=== PATIENT | female | born 1960 | race Caucasian/White ===

== ENCOUNTER 2016-06-19 23:23 | Emergency (ER) | payer OTHER, MEDICAID ==
[~2016-06-19] VITALS: Ht 165.1 cm; Wt 54.0 kg
[~2016-06-19 23:23] MED LIST: BACL10TA; HYDR-4100; OXYC80TA39
--- NOTE | 2016-06-19 23:28 | NUR ---
Pt called in for triage, pt refused to be assessed and stated she wanted to have a cigarette break first. Will come back at later time
[2016-06-19 23:56] VITALS: BP 165/88; PULSE 93; RESP 18; TEMP 97.8; O2SAT 99
--- NOTE | 2016-06-19 23:56 | NUR ---
Patient to bed 6
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
--- NOTE | 2016-06-20 00:08 | NUR ---
MD Moreno at bedside examining pt
--- NOTE | 2016-06-20 00:28 | NUR ---
pt taken off ED for CT by radiologist via wheelchair, no distress noted
--- NOTE | 2016-06-20 00:50 | NUR ---
Pt returned to ED
--- NOTE | 2016-06-20 01:30 | NUR ---
Pt able to ambulate to the bathroom, stable gait. Pt denies distress
--- NOTE | 2016-06-20 01:50 | NUR ---
Kizzy james in ED - 06/20/16 at 0235 by [email or web address] Pt returned to ED
[2016-06-20 02:01] LABS: BILIRUBIN,URINE NEGATIVE (NEGATIVE); BLOOD, URINE 2+ (NEGATIVE); CLARITY/URINE CLEAR (CLEAR); COLOR,URINE YELLOW (YELLOW); GLUCOSE,URINE NEGATIVE (NEGATIVE); KETONES,URINE NEGATIVE (NEGATIVE); LEUKOCYTE ESTERASE ,URINE NEGATIVE (NEGATIVE); NITRITE, URINE NEGATIVE (NEGATIVE); PROTEIN URINE TRACE (NEGATIVE); UROBILINOGEN,URINE 0.2 (0.2-1.0)
[2016-06-20 02:12] LABS: BARBITURATE, URINE NEGATIVE (NEG <=200); BENZODIAZEPINE, URINE POSITIVE (NEG <=150); COCAINE, URINE POSITIVE (NEG <=150); METHAMPHETAMINES SCREEN,URINE POSITIVE (NEG <=500); URINE AMPHETAMINE POSITIVE (NEG <=500); URINE METHADONE NEGATIVE (NEG <=200)
[2016-06-20 02:13] VITALS: BP 150/87; PULSE 92; RESP 16; TEMP 97.8; O2SAT 98
[2016-06-20 02:13] LABS: CANNABINOID, URINE NEGATIVE (NEG <=50); OPIATE, URINE NEGATIVE (NEG <=100); PHENCYCLIDINE SCREEN,URINE NEGATIVE (NEG <=25); UR TRICYCLIC ANTIDEPRESSANTS NEGATIVE (NEG <=300); URINE OXYCODONE SCREEN NEGATIVE (NEG <=100); URINE PROPOXYPHENE SCREEN NEGATIVE (NEG <=300)
--- NOTE | 2016-06-20 02:13 | NUR ---
Patient given written and verbal discharge instructions and verbalizes understanding. ER MD Moreno discussed with patient the results and treatment provided. Patient in stable condition. ID arm band removed. No rx given. Patient educated on pain management and to follow up with PMD. Pain Scale 0/10. Opportunity for questions provided and answered.
[2016-06-20 02:24] LABS: BACTERIA,URINE FEW /HPF (None Seen); MUCUS,URINE None Seen /LPF (None Seen)
== END 2016-06-20 02:13 | disposition home or self-care (01) ==
LOC: SED 23:23
DX: S20.219A Contusion of unspecified front wall of thorax, initial encounter (principal); F17.210 Nicotine dependence, cigarettes, uncomplicated; Z88.1 Allergy status to other antibiotic agents; Z88.6 Allergy status to analgesic agent; Z88.8 Allergy status to other drugs, medicaments and biological substances; V49.9XXA Car occupant (driver) (passenger) injured in unspecified traffic accident, initial encounter; Y93.89 Activity, other specified; Y99.8 Other external cause status; Y92.89 Other specified places as the place of occurrence of the external cause
CPT/HCPCS: 70450-TC; 71020-TC; 80307; 81000-TC; 99285

== ENCOUNTER 2016-06-25 09:09 | Emergency (ER) | payer OTHER, MEDICAID ==
[~2016-06-25] VITALS: Ht 172.7 cm; Wt 63.5 kg
[2016-06-25] MEDS ORDERED: OFLOXACIN 0.3% OPHTHALMIC DROPS 5 ML OP ONE (09:45)
[2016-06-25 09:56] VITALS: BP_SYST 178
[2016-06-25 10:14] VITALS: BP_SYST 178
[2016-06-25] MEDS ORDERED: OFLOXACIN 0.3%, 5 ML EAR DROPS ONE (10:14)
== END 2016-06-25 10:16 | disposition home or self-care (01) ==
LOC: SED 09:09
DX: S05.02XA Injury of conjunctiva and corneal abrasion without foreign body, left eye, initial encounter (principal); S05.01XA Injury of conjunctiva and corneal abrasion without foreign body, right eye, initial encounter; Z88.6 Allergy status to analgesic agent; Z88.1 Allergy status to other antibiotic agents; X58.XXXA Exposure to other specified factors, initial encounter; Y93.89 Activity, other specified; Y92.89 Other specified places as the place of occurrence of the external cause; Y99.8 Other external cause status
CPT/HCPCS: 99283

== ENCOUNTER 2016-09-09 13:14 | Inpatient (IN) | payer OTHER, MEDICAID ==
[~2016-09-09] VITALS: Ht 167.4 cm; Wt 56.2 kg
[2016-09-09 13:14] VITALS: BP_SYST 132
[2016-09-09] MEDS ORDERED: NACL 0.9% 1,000 ML IV ONE (14:00)
[2016-09-09 14:22] LABS: BILIRUBIN,URINE NEGATIVE (NEGATIVE); BLOOD, URINE 3+ (NEGATIVE); CLARITY/URINE CLEAR (CLEAR); COLOR,URINE YELLOW (YELLOW); GLUCOSE,URINE NEGATIVE (NEGATIVE); KETONES,URINE NEGATIVE (NEGATIVE); LEUKOCYTE ESTERASE ,URINE NEGATIVE (NEGATIVE); NITRITE, URINE NEGATIVE (NEGATIVE); PH,URINE 5.5 (5.0-8.0); PROTEIN URINE TRACE (NEGATIVE); UROBILINOGEN,URINE 0.2 (0.2-1.0)
[2016-09-09 14:29] LABS: BACTERIA,URINE FEW /HPF (None Seen); MUCUS,URINE None Seen /LPF (None Seen)
[2016-09-09 14:39] LABS: BARBITURATE, URINE NEGATIVE (NEG <=200); BENZODIAZEPINE, URINE NEGATIVE (NEG <=150); CANNABINOID, URINE NEGATIVE (NEG <=50); COCAINE, URINE NEGATIVE (NEG <=150); METHAMPHETAMINES SCREEN,URINE POSITIVE (NEG <=500); OPIATE, URINE POSITIVE (NEG <=100); PHENCYCLIDINE SCREEN,URINE NEGATIVE (NEG <=25); UR TRICYCLIC ANTIDEPRESSANTS NEGATIVE (NEG <=300); URINE AMPHETAMINE POSITIVE (NEG <=500); URINE METHADONE NEGATIVE (NEG <=200); URINE OXYCODONE SCREEN NEGATIVE (NEG <=100); URINE PROPOXYPHENE SCREEN NEGATIVE (NEG <=300)
[2016-09-09 15:14] LABS: BASOPHILS # (AUTO) 0.1 K/uL (0.0-0.2); BASOPHILS % (AUTO) 0.7 % (0.0-2.0); EOSINOPHILS # (AUTO) 0.3 K/uL (0.0-0.4); EOSINOPHILS % (AUTO) 3.1 % (0.0-4.0); HEMATOCRIT 44.9 % (36-48); HEMOGLOBIN 14.3 g/dL (12.0-16.0); LYMPHOCYTES # (AUTO) 2.2 K/uL (1.0-5.5); LYMPHOCYTES % (AUTO) 24.4 % (20.5-51.5); MEAN CORPUSCULAR HEMOGLOBIN 29 pg (27-31); MEAN CORPUSCULAR HGB CONC 32 % (32-36); MEAN CORPUSCULAR VOLUME 90 fL (79.0-98.0); MONOCYTES # (AUTO) 0.7 K/uL (0.0-1.0); MONOCYTES % (AUTO) 7.5 % (1.7-9.3); NEUTROPHILS # (AUTO) 5.6 K/uL (1.8-7.7); NEUTROPHILS % (AUTO) 64.3 % (40.0-70.0); PLATELET COUNT (AUTO) 324 K/uL (130-430); RED BLOOD CELL COUNT(AUTO) 4.99 MIL/uL (4.2-6.2); WHITE BLOOD COUNT (AUTO) 8.9 K/uL (4.8-10.8)
[2016-09-09 15:27] LABS: ANION GAP 7 (5-15); CALCIUM 9.5 mg/dL (8.4-11.0); CHLORIDE 101 mmol/L (98-107); CREATININE 1.42 mg/dL (0.55-1.30); GLUCOSE 96 mg/dL (70-99); PROTHROMBIN TIME 10.5 SECS (9.5-12.5); SODIUM SERUM 139 mmol/L (136-145); UREA NITROGEN, BLOOD 33 mg/dL (8-21)
[2016-09-09 15:32] LABS: ALANINE AMINOTRANSFERASE 38 U/L (12-78); ALBUMIN 3.8 g/dL (3.4-4.8); ASPARTATE AMINOTRANSFERASE 27 U/L (10-37); CREATINE KINASE, TOTAL 70 U/L (26-192); SALICYLATE 4 mg/dL (3-30); TOTAL BILIRUBIN 0.4 mg/dL (0.0-1.0); TOTAL PROTEIN, SERUM 8.9 g/dL (6.4-8.3)
[2016-09-09 15:33] LABS: ALCOHOL, BLOOD < 3 mg/dL (<10); GFR AFRICAN AMERICAN 49 mL/min (>90)
[2016-09-09 15:36] LABS: POTASSIUM 2.8 mmol/L (3.5-5.1)
[2016-09-09 15:51] LABS: ACETAMINOPHEN < 1 ug/mL (1-30)
[2016-09-09] MEDS: KCL 20 mEq in 100 mL (PREMIX) 100 ML IV ONE ×2 (16:45→17:30)
[2016-09-09] MEDS ORDERED: NALOXONE HCL 0.4 MG/ML AMP (NARCAN) IVP ONE (17:00)
[2016-09-09] MEDS ORDERED: ONDA4TAB22 PO (17:26)
[2016-09-09] MEDS ORDERED: CAT.1 PO (17:26)
[2016-09-09] MEDS ORDERED: ESTR0.623 PO (17:26)
[2016-09-09 17:40] VITALS: BP_SYST 165
[2016-09-09] MEDS ORDERED: ACETAMINOPHEN 650 MG SUPP.RECT RC PRN (19:15)
[2016-09-09] MEDS ORDERED: ONDANSETRON HCL 4 MG/2 ML VIAL IVP PRN (19:15)
[2016-09-09] MEDS ORDERED: FAMOTIDINE PF 20 MG/2 ML VIAL IVP ONE (19:15)
[2016-09-09] MEDS ORDERED: cloNIDine HCL 0.1 MG TABLET PO PRN (19:30)
[2016-09-09] MEDS: D5/0.45 NS 1,000 ML IV SCH (20:10)
[2016-09-09 20:19] VITALS: BP_SYST 137
[2016-09-10] VITALS (7 sets, daily range): BP systolic 135–154
[2016-09-10] MEDS: D5/0.45 NS 1,000 ML IV SCH (03:38)
[2016-09-10 06:51] LABS: BASOPHILS # (AUTO) 0.1 K/uL (0.0-0.2); BASOPHILS % (AUTO) 0.6 % (0.0-2.0); EOSINOPHILS # (AUTO) 0.3 K/uL (0.0-0.4); EOSINOPHILS % (AUTO) 3.5 % (0.0-4.0); HEMOGLOBIN 12.1 g/dL (12.0-16.0); LYMPHOCYTES # (AUTO) 1.7 K/uL (1.0-5.5); LYMPHOCYTES % (AUTO) 19.1 % (20.5-51.5); MEAN CORPUSCULAR HEMOGLOBIN 30 pg (27-31); MEAN CORPUSCULAR HGB CONC 34 % (32-36); MEAN CORPUSCULAR VOLUME 90 fL (79.0-98.0); MONOCYTES % (AUTO) 10.5 % (1.7-9.3); NEUTROPHILS % (AUTO) 66.3 % (40.0-70.0); PLATELET COUNT (AUTO) 296 K/uL (130-430); RED BLOOD CELL COUNT(AUTO) 3.99 MIL/uL (4.2-6.2); RED CELL DISTRIBUTION WIDTH 12.8 % (9.0-15.0); WHITE BLOOD COUNT (AUTO) 9.1 K/uL (4.8-10.8)
[2016-09-10 07:16] LABS: ALBUMIN 2.8 g/dL (3.4-4.8); CALCIUM 8.4 mg/dL (8.4-11.0); CREATININE 1.29 mg/dL (0.55-1.30); POTASSIUM 3.1 mmol/L (3.5-5.1); THYROID STIMULATING HORMONE 0.27 uIu/mL (0.34-4.82); TOTAL BILIRUBIN 0.3 mg/dL (0.0-1.0)
[2016-09-10] MEDS ORDERED: HYDROcodone/ACETAMIN 10-325 MG TAB PO PRN ×2 (09:00→09:15)
[2016-09-10] MEDS ORDERED: POTASSIUM CHLORIDE 40 MEQ, LIDOCAINE JECT 2% PF 100 MG 50 MG in NS 250 ML IV ONE (09:00)
[2016-09-10] MEDS ORDERED: BACLOFEN 10 MG TABLET PO SCH (09:00)
[2016-09-10] MEDS ORDERED: ACETAMINOPHEN 325 MG TABLET PO PRN (09:00)
[2016-09-10] MEDS ORDERED: cloNIDine HCL 0.1 MG TABLET PO PRN (09:00)
[2016-09-10] MEDS ORDERED: POTA10TA79 PO (17:53)
[2016-09-10] MEDS ORDERED: CEPH-568 PO (17:53)
== END 2016-09-10 19:20 | disposition home or self-care (01) | DRG 917 ==
LOC: SED 13:14 → STU 17:13
PROVIDERS: ADMIT Internal Medicine; ATTEND Internal Medicine
DX: T50.901A Poisoning by unspecified drugs, medicaments and biological substances, accidental (unintentional), initial encounter (principal); G92 Toxic encephalopathy; N39.0 Urinary tract infection, site not specified; E87.6 Hypokalemia; G89.4 Chronic pain syndrome; M54.5 Low back pain; M79.7 Fibromyalgia; M79.89 Other specified soft tissue disorders; F17.210 Nicotine dependence, cigarettes, uncomplicated; T39.95XA Adverse effect of unspecified nonopioid analgesic, antipyretic and antirheumatic, initial encounter; N18.9 Chronic kidney disease, unspecified; Z88.6 Allergy status to analgesic agent; Z88.1 Allergy status to other antibiotic agents; Z88.8 Allergy status to other drugs, medicaments and biological substances; Z79.899 Other long term (current) drug therapy; Z72.89 Other problems related to lifestyle; Y92.89 Other specified places as the place of occurrence of the external cause
CPT/HCPCS: 36415; 70450-TC; 71010; 80053; 80307; 81000-TC; 82550-TC; 83735-TC; 84443-TC; 84484; 85025; 85610-TC; 85730-TC; 87081; 93005; 93970; 96361; 96365; 96366; 99285; G0480; G0481; G0482; J3480; J3490; J7050

== ENCOUNTER 2017-12-18 12:00 | Inpatient (IN) | payer OTHER, MEDICAID ==
[~2017-12-18] VITALS: Ht 165.1 cm; Wt 74.4 kg
[~2017-12-18 12:00] MED LIST changes: +CEPH-568 PO; +ONDA4TAB22 PO; -OXYC80TA39; +POTA10TA11 PO
[2017-12-18 12:14] VITALS: BP_SYST 116
--- NOTE | 2017-12-18 12:22 | NUR ---
Patient to ER bed 5 to gown for evaluation. Side rails up. Report given to Adelfo LERMA.
--- NOTE | 2017-12-18 12:34 | NUR ---
Patient is awake, alert, and oriented x4. She is complaining of pain in both legs lasting for 1.5 weeks. She reports a history of anxiety, depression, and cholecystectomy.
[2017-12-18] MEDS ORDERED: NACL 0.9% 1,000 ML IV ONE ×3 (12:36→14:15)
[2017-12-18] MEDS ORDERED: ONDANSETRON HCL 4 MG/2 ML VIAL IVP ONE (12:45)
[2017-12-18] MEDS ORDERED: MORPHINE 4 MG/ML INJ. SYRINGE IVP ONE (12:45)
[2017-12-18] MEDS ORDERED: cefTRIAXone 1 GM IVPB PREMIX 50 ML IV ONE (13:00)
[2017-12-18 13:11] LABS: BASOPHILS # (AUTO) 0.1 K/uL (0.0-0.2); BASOPHILS % (AUTO) 0.6 % (0.0-2.0); HEMATOCRIT 50.3 % (36-48); HEMOGLOBIN 16.4 g/dL (12.0-16.0); LYMPHOCYTES # (AUTO) 0.3 K/uL (1.0-5.5); LYMPHOCYTES % (AUTO) 1.7 % (20.5-51.5); MEAN CORPUSCULAR HEMOGLOBIN 30 pg (27-31); MEAN CORPUSCULAR HGB CONC 33 % (32-36); MEAN CORPUSCULAR VOLUME 91 fL (79.0-98.0); MONOCYTES # (AUTO) 0.1 K/uL (0.0-1.0); MONOCYTES % (AUTO) 0.4 % (1.7-9.3); NEUTROPHILS # (AUTO) 17.7 K/uL (1.8-7.7); NEUTROPHILS % (AUTO) 97.3 % (40.0-70.0); PLATELET COUNT (AUTO) 358 K/uL (130-430); RED BLOOD CELL COUNT(AUTO) 5.55 MIL/uL (4.2-6.2); RED CELL DISTRIBUTION WIDTH 14.9 % (9.0-15.0); WHITE BLOOD COUNT (AUTO) 18.2 K/uL (4.8-10.8)
[2017-12-18 13:23] LABS: ANION GAP 13 (5-15); CALCIUM 9.6 mg/dL (8.4-11.0); CHLORIDE 96 mmol/L (98-107); GFR AFRICAN AMERICAN 54 mL/min (>90); GLUCOSE 97 mg/dL (70-99); POTASSIUM 3.2 mmol/L (3.5-5.1); SODIUM SERUM 135 mmol/L (136-145); UREA NITROGEN, BLOOD 16 mg/dL (8-21)
[2017-12-18 13:26] LABS: PROTHROMBIN TIME 9.9 SECS (9.5-12.5)
[2017-12-18 13:29] LABS: ALANINE AMINOTRANSFERASE 35 U/L (12-78); ALBUMIN 3.5 g/dL (3.4-4.8); ASPARTATE AMINOTRANSFERASE 31 U/L (10-37); LIPASE 94 U/L (73-393); TOTAL BILIRUBIN 0.9 mg/dL (0.0-1.0)
[2017-12-18 13:33] LABS: ACETAMINOPHEN < 1 ug/mL (1-30); ALCOHOL, BLOOD < 3 mg/dL (<10)
--- NOTE | 2017-12-18 15:06 | NUR ---
Dr. Saleh made aware of abnormal vital signs.
[2017-12-18 15:13] LABS: BILIRUBIN,URINE NEGATIVE (NEGATIVE); BLOOD, URINE 2+ (NEGATIVE); CLARITY/URINE CLEAR (CLEAR); COLOR,URINE YELLOW (YELLOW); GLUCOSE,URINE NEGATIVE (NEGATIVE); KETONES,URINE NEGATIVE (NEGATIVE); LEUKOCYTE ESTERASE ,URINE NEGATIVE (NEGATIVE); NITRITE, URINE NEGATIVE (NEGATIVE); PH,URINE 6.5 (5.0-8.0); PROTEIN URINE 2+ (NEGATIVE); UROBILINOGEN,URINE 0.2 (0.2-1.0)
[2017-12-18] MEDS ORDERED: cloNIDine HCL 0.1 MG TABLET PO ONE ×2 (15:15→16:30)
[2017-12-18] MEDS ORDERED: ACETAMINOPHEN 500 MG TABLET PO ONE (15:15)
[2017-12-18 15:17] LABS: BACTERIA,URINE FEW /HPF (None Seen); MUCUS,URINE 1+ /LPF (None Seen)
[2017-12-18 15:21] LABS: BARBITURATE, URINE NEGATIVE (NEG <=200); BENZODIAZEPINE, URINE NEGATIVE (NEG <=150); CANNABINOID, URINE NEGATIVE (NEG <=50); COCAINE, URINE NEGATIVE (NEG <=150); METHAMPHETAMINES SCREEN,URINE POSITIVE (NEG <=500); OPIATE, URINE POSITIVE (NEG <=100); PHENCYCLIDINE SCREEN,URINE NEGATIVE (NEG <=25); UR TRICYCLIC ANTIDEPRESSANTS NEGATIVE (NEG <=300); URINE AMPHETAMINE POSITIVE (NEG <=500); URINE METHADONE NEGATIVE (NEG <=200); URINE OXYCODONE SCREEN NEGATIVE (NEG <=100); URINE PROPOXYPHENE SCREEN NEGATIVE (NEG <=300)
--- NOTE | 2017-12-18 15:47 | NUR ---
Patient transported to radiology via gurney, accompanied by pathology lab technician.
--- NOTE | 2017-12-18 16:20 | NUR ---
Returned from radiology, back to [facility].
--- NOTE | 2017-12-18 16:22 | NUR ---
Informed Dr. Saleh of vitals and increase in oxygen.
--- NOTE | 2017-12-18 16:34 | NUR ---
Clonidine 0.2mg not available, insuffecient quantity available. Spoke with Zane in pharmacy and made them aware.
[2017-12-18] MEDS ORDERED: HYDROcodone/ACETAMIN 5-325 MG TAB (NORCO/ VICODIN) PO PRN (17:15)
[2017-12-18] MEDS ORDERED: ONDANSETRON HCL 4 MG/2 ML VIAL IVP PRN (17:15)
--- NOTE | 2017-12-18 17:20 | NUR ---
Spoke with Dr. Tinsley regardng admission orders. States she will put in all orders.
[2017-12-18] MEDS ORDERED: MAGNESIUM SULFATE 50 ML IV PRN (17:45)
--- NOTE | 2017-12-18 17:53 | NUR ---
Patient will be admitted to care of Dr. Tinsley. Admitted to telemetry unit. Will go to room 101A. Belongings list completed. Summary report printed. Report will be given at bedside.
--- NOTE | 2017-12-18 18:04 | NUR ---
ADMISSION NOTE Received patient from ER via isak, received report from HOLA LERMA. Patient admitted with diagnosis of BILATERAL LE CELLULITIS . Patient oriented to hospital routine, call light, toileting and safety-patient verbalized understanding.
--- NOTE | 2017-12-18 18:08 | NUR ---
Patient transferred to room 101A with mobile monitor via gurney by RN and EMT. Report given to MARIA GUADALUPE Moralez for continuation of care.
[2017-12-18 18:12] VITALS: BP_SYST 162
[2017-12-18] MEDS ORDERED: NACL 0.9% 1,000 ML IV SCH (18:15)
[2017-12-18] MEDS ORDERED: POTASSIUM CHLORIDE 20 MEQ TAB.PRT.SR PO ONE (18:15)
[2017-12-18] MEDS ORDERED: FUROSEMIDE 100 MG/10 ML VIAL IVP ONE (18:15)
--- NOTE | 2017-12-18 18:30 | NUR ---
Opening Note received report from admitting RN, pt resting in bed, A&Ox3, respirations even and unlabored on 4L nasal canula, right EJ in place, tele monitor in place, pt denies any pain, no acute distress noted, pt educated on use of call light and asked to call for assistance, pt verbalized understanding, call light in reach, bed in low position, bed alarm on, fall and aspiration precautions in place.
[2017-12-18] MEDS ORDERED: PIPERACILLIN/TAZOBACTAM 3.375 GM/VIAL (ZOSYN) IV ONE (18:33)
[2017-12-18 18:40] VITALS: BP_SYST 156
[2017-12-18] MEDS: PIPERACILLIN/TAZO 3.375/DEX-IS 50 ML IV SCH ×2 (18:45→23:58)
--- NOTE | 2017-12-18 18:50 | NUR ---
Medication pt educated on medication use and side effects, pt verbalized understanding, tolerated medication administration well, no acute distress noted, fall and aspiration precautions in place.
--- NOTE | 2017-12-18 19:10 | NUR ---
Spoke with pharmacy spoke with pharmacy, they asked if pt has any blood in urine or any signs of bleeding due to orders for lovenox, informed them that pt has not yet voided since being admitted to floor, no report of blood in urine, endorsed to shiftman RN to monitor for bleeding.
--- NOTE | 2017-12-18 19:20 | NUR ---
Closing Note pt resting in bed, A&Ox3, respirations even and unlabored on 4L nasal canula, pt denies any pain, no acute distress noted, tele monitor in place, pt educated on use of call light and asked to call for assistance, pt verbalized understanding, call light in reach, bed in low position, bed alarm on, fall and aspiration precautions in place, care endorsed to night shift manager RN.
--- NOTE | 2017-12-18 19:37 | NUR ---
Spoke with Spoke with Dr. Tinsley, informed her that pts BP was 156/84, HR 104 at 1840, current BP 118/79, HR 111, informed MD that pt meets sepsis protocol, orders to call MD if SBP drops below 100, D/C order for lasix 80mg, new order for lasix 40mg IVP once, orders for NS @ 150ml/hr, verified with telephone read back. Addendum: 12/18/17 at 1955 by Karin Dillard RN add: per MD keep O2Sat >93%
[2017-12-18] MEDS ORDERED: FUROSEMIDE 40 MG/4 ML VIAL IVP ONE (19:45)
[2017-12-18] MEDS: NACL 0.9% 1,000 ML IV SCH (19:45)
[2017-12-18 19:50] VITALS: BP_SYST 135
[2017-12-18 19:52] VITALS: BP_SYST 118
--- NOTE | 2017-12-18 19:52 | NUR ---
INITIAL NOTE AT INITIAL ASSESSMENT, PATIENT IS RESTING IN BED, NO SIGNS OF RESPIRATORY DISTRESS. PATIENT VERBALIZES TOLERABLE PAIN AT THIS TIME. PLAN OF CARE FOR THE EVENING IS COMMUNICATED WITH THE PATIENT. CALL LIGHT-TEACH BACK IS SUCCESSFUL. BLOOD PRESSURE WILL BE MONITORED CLOSELY THROUGHOUT THE SHIFT. BED IS LOCKED, ALARMED, AND AT THE LOWEST LEVEL. SEPSIS PROTOCOL HAS ALREADY BEEN INITIATED AND IS BEING FOLLOWED THROUGH AT THIS TIME. FALL AND SAFETY PRECAUTIONS WILL BE IN PLACE THROUGHOUT THE SHIFT.
[2017-12-18] MEDS: ALBUTEROL SULFATE 0.083% 2.5 MG/3 ML VIAL.NEB INH PRN (20:22)
--- NOTE | 2017-12-18 21:46 | NUR ---
NOTE PATIENT IS SLEEPING, STABLE, NO SIGNS OF RESPIRATORY DISTRESS. HER BLOOD PRESSURE HAS STOPPED DESCENDING. CALL LIGHT WITHIN REACH. BED IS LOCKED, ALARMED, AND AT THE LOWEST LEVEL.
[2017-12-18 21:57] VITALS: BP_SYST 116
--- NOTE | 2017-12-18 23:45 | NUR ---
PAIN NOTE PATIENT IS RESTING IN BED, STABLE, NO SIGNS OF RESPIRATORY DISTRESS. SHE IS VERBALIZING SEVERE LOWER BACK PAIN AT THIS TIME, PRN MEDICATION FOR SEVERE PAIN WILL BE GIVEN AT THIS TIME. CALL LIGHT WITHIN REACH. BED IS LOCKED, ALARMED, AND AT THE LOWEST LEVEL.
[2017-12-18] MEDS: MORPHINE 2 MG/ML INJ. SYRINGE IVP PRN (23:58)
[2017-12-19 01:10] VITALS: BP_SYST 155
--- NOTE | 2017-12-19 01:42 | NUR ---
NOTE PATIENT IS SLEEPING, STABLE, NO SIGNS OF RESPIRATORY DISTRESS. CALL LIGHT WITHIN REACH. BED IS LOCKED, ALARMED, AND AT THE LOWEST LEVEL.
[2017-12-19] MEDS: MORPHINE 2 MG/ML INJ. SYRINGE IVP PRN ×2 (03:04→16:44)
[2017-12-19] MEDS: NACL 0.9% 1,000 ML IV SCH ×4 (03:08→23:22)
--- NOTE | 2017-12-19 04:10 | NUR ---
HIGH HR NOTE PATIENT IS RESTING IN BED, NO SIGNS OF RESPIRATORY DISTRESS. HER HR HAS BEEN ELEVATED DESPITE PRN MEDICATION GIVEN FOR PAIN 1 HOUR AGO. PATIENT VERBALIZES SOME ANXIETY, PRN MEDICATION FOR ANXIETY IS GIVEN AT THIS TIME. PATIENT VERBALIZES NO DIFFICULTY BREATHING, OR PAIN (INCLUDING CHEST PAIN). CALL LIGHT WITHIN REACH. BED IS LOCKED, AND AT THE LOWEST LEVEL.
[2017-12-19] MEDS: LORazepam 2 MG/ML VIAL IVP PRN (04:45)
--- NOTE | 2017-12-19 05:09 | NUR ---
HR NOTE PATIENT'S HR IS STILL ELEVATED AT THIS TIME AROUND 110, SHE IS SLEEPING, STABLE, NO SIGNS OF RESPIRATORY DISTRESS, AND IS ASYMPTOMATIC OF TACHYCARDIA. WILL CONTINUE TO MONITOR CLOSELY. CALL LIGHT WITHIN REACH. BED IS LOCKED, AND AT THE LOWEST LEVEL.
[2017-12-19] MEDS: PIPERACILLIN/TAZO 3.375/DEX-IS 50 ML IV SCH ×4 (05:11→23:17)
--- NOTE | 2017-12-19 05:29 | NUR ---
CONSULTATION PAGED/CALLED Reason for Consultation: CHF Person Who was Notified: KATHY Consulting Physician: DR. ALBARRAN Director Of Marketing Operations Specialty: CARDIO Ordering Physician: DR. JOHN
[2017-12-19 06:24] LABS: BASOPHILS % (AUTO) 0.2 % (0.0-2.0); HEMATOCRIT 39.7 % (36-48); HEMOGLOBIN 12.9 g/dL (12.0-16.0); LYMPHOCYTES # (AUTO) 0.5 K/uL (1.0-5.5); LYMPHOCYTES % (AUTO) 3.4 % (20.5-51.5); MEAN CORPUSCULAR HEMOGLOBIN 29 pg (27-31); MEAN CORPUSCULAR HGB CONC 33 % (32-36); MEAN CORPUSCULAR VOLUME 90 fL (79.0-98.0); MONOCYTES # (AUTO) 0.2 K/uL (0.0-1.0); MONOCYTES % (AUTO) 1.3 % (1.7-9.3); NEUTROPHILS # (AUTO) 14.3 K/uL (1.8-7.7); NEUTROPHILS % (AUTO) 95.1 % (40.0-70.0); PLATELET COUNT (AUTO) 272 K/uL (130-430); RED BLOOD CELL COUNT(AUTO) 4.42 MIL/uL (4.2-6.2); RED CELL DISTRIBUTION WIDTH 14.4 % (9.0-15.0)
[2017-12-19] MEDS: POTASSIUM CHLORIDE 20 MEQ TAB.PRT.SR PO PRN (06:40)
--- NOTE | 2017-12-19 06:44 | NUR ---
FLU VACCINE GIVEN PATIENT RECEIVED FLU VACCINE AT THIS TIME.
--- NOTE | 2017-12-19 06:45 | NUR ---
MD AD JOHN IS AT BEDSIDE FOR THE PATIENT AT THIS TIME. SHE VERBALIZES SHE WILL PLACE NEW ORDERS FOR PATIENT HERSELF. Addendum: 12/19/17 at 0744 by Moe Graf RN MD WAS MADE AWARE OF THE PATIENT'S HIGH HR OVER NIGHT.
[2017-12-19 06:50] LABS: CALCIUM 7.5 mg/dL (8.4-11.0); CREATININE 1.12 mg/dL (0.55-1.30); POTASSIUM 3.5 mmol/L (3.5-5.1)
--- NOTE | 2017-12-19 06:50 | NUR ---
CLOSING NOTE PATIENT IS RESTING IN BED, STABLE, NO SIGNS OF RESPIRATORY DISTRESS. CALL LIGHT IS WITHIN REACH. BED IS LOCKED, ALARMED, AND AT THE LOWEST LEVEL. FALL AND SAFETY PRECAUTIONS HAVE BEEN IN PLACE THROUGHOUT THE SHIFT. WILL CONTINUE TO MONITOR UNTIL SHIFT REPORT IS GIVEN AT BEDSIDE TO AM NURSE.
[2017-12-19 06:54] LABS: PHOSPHORUS 2.8 mg/dL (2.7-4.5)
--- NOTE | 2017-12-19 08:02 | NUR ---
OPENING NOTE: MORNING REPORT WAS TAKEN FROM SCHOOL BUS AIDE NURSE. PATIENT IS ALERT AND ORIENTED TO NAME, BIRTHDAY, PLACE AND YEAR. PATIENT IN ON 3L NC COMPLAINING OF A LITTLE BIT OF SHORTNESS OF BREATH. PATIENT IS NOT COMPLAINING OF PAIN. PATIENT IS NOT COMPLAINING OF NAUSEA OR VOMITING. PATIENT IS NOT COMPLAINING OF CONSTIPATION. PATIENT HAS FLUIDS INFUSING. LEFT CALF IS RED AND WARM. PATIENTS LOWER EXTREMITIES EDEMATOUS. PATIENT VERY LETHARGIC. PATIENT FALLS ASLEEP WHILE TALKING TO HER. BED ALARM IS ON AND CALL LIGHT IS IN REACH. BED IS IN LOWEST POSITION AND SIDE RAILS ARE UP. WILL CONTINUE TO MONITOR.
[2017-12-19 08:04] VITALS: BP_SYST 176
[2017-12-19] MEDS: FUROSEMIDE 40 MG/4 ML VIAL IVP SCH (09:18)
[2017-12-19] MEDS: LACTOBACILLUS RHAMNOSUS GG 1 CAP CAPSULE PO SCH (09:19)
[2017-12-19] MEDS: ENOXAPARIN SODIUM 40 MG/0.4 ML SYRINGE SUBCUT SCH (09:20)
--- NOTE | 2017-12-19 10:01 | NUR ---
NOTE: CHECKED PATIENT'S BLOOD PRESSURE BECAUSE IT WAS ELEVATED EARLIER AND WAS NOW 146/100. PATIENT ASLEEP IN BED. WILL CONTINUE TO MONITOR.
[2017-12-19] MEDS ORDERED: CARVEDILOL 6.25 MG TABLET (COREG) PO ONE (11:30)
[2017-12-19 12:00] VITALS: BP_SYST 172
--- NOTE | 2017-12-19 12:24 | NUR ---
NOTE: GAVE PATIENT SCHEDULED MEDICATIONS. BLOOD PRESSURE ELEVATED. GAVE BP MED. WILL REASSESS IN AN HOUR.
--- NOTE | 2017-12-19 14:50 | NUR ---
NOTE: PATIENT LAYING DOWN IN BED WITH NO SIGNS OF DISTRESS. PATIENT STILL LETHARGIC. FLUIDS ARE INFUSING AND CALL LIGHT IS IN REACH. WILL CONTINUE TO MONITOR.
[2017-12-19 16:00] VITALS: BP_SYST 177
[2017-12-19] MEDS: hydrALAZINE HCL 20 MG/ML VIAL IVP PRN (16:09)
--- NOTE | 2017-12-19 16:10 | NUR ---
NOTE: PATIENT'S BLOOD PRESSURE ELEVATED. GAVE PRN FOR BLOOD PRESSURE. HUNG NEW BAG OF FLUIDS. PATIENT ASLEEP STILL BUT WAKES FOR A SECOND TO TALK TO HER. WILL CONTINUE TO MONITOR.
--- NOTE | 2017-12-19 16:55 | NUR ---
NOTE: PATIENT WAS MOANING COMPLAINING OF PAIN. GAVE PATIENT PAIN MEDICATION. RECHECKED BLOOD PRESSURE AND WAS 159/122. PATIENT GETTING DOPPLER OF LOWER EXTREMITIES RIGHT NOW. WILL CONTINUE TO MONITOR.
--- NOTE | 2017-12-19 18:13 | NUR ---
CLOSING NOTE: PATIENT ASLEEP IN BED WITH NO SIGNS OF DISTRESS. PATIENT GIVEN SCHEDULED MEDICATIONS. PATIENT LETHARGIC STILL. FLUIDS ARE INFUSING. PATIENT ON 4L NC. CALL LIGHT IS IN REACH AND BED ALARM IS ON. WILL CONTINUE TO MONITOR AND GIVE REPORT TO MILL ORDER SCHEDULER NURSE.
[2017-12-19 20:00] VITALS: BP_SYST 144
--- NOTE | 2017-12-19 20:00 | NUR ---
Initial Notes Received patient resting in bed, lethargic but arousable to name. Patient denies any acute distress or pain at this time. Breathing is even and unlabored. Vital signs stable, fever noted, removed excess blankets and cooling measures applied. IV sites patent/clean/dry. Educated patient regarding use of call light for assistance and fall precautions, patient verbalized understanding. Call light in hand, fall precautions in place, will continue to monitor.
[2017-12-19] MEDS ORDERED: CARVEDILOL 6.25 MG TABLET (COREG) PO SCH (21:00)
--- NOTE | 2017-12-19 21:15 | NUR ---
MD Communication S/W Dr. Tinsley on phone regarding patient's elevated temperature. Orders received and will carry out. Per patient, patient is not allergic to Tylenol.
[2017-12-19] MEDS ORDERED: ACETAMINOPHEN 325 MG TABLET PO PRN (21:30)
--- NOTE | 2017-12-19 22:00 | NUR ---
Nursing Notes Patient resting in bed with eyes closed, arousable to name. Patient denies any acute distress or pain at this time. Breathing is even and unlabored. IV site patent/clean/dry. Needs addressed. Call light in hand, will continue to monitor.
[2017-12-19 23:34] VITALS: BP_SYST 124
[2017-12-20] VITALS (16 sets, daily range): BP systolic 104–203
--- NOTE | 2017-12-20 | NUR ---
Nursing Notes Patient resting in bed with eyes closed, easily aroused. Patient denies any acute distress or pain at this time. Breathing is even and unlabored. IV site patent/clean/dry. Repositioned patient for comfort. Fall precautions in place, will continue to monitor.
--- NOTE | 2017-12-20 02:00 | NUR ---
Nursing Notes Patient resting in bed with eyes closed. No distress noted, breathing is even and unlabored. IV site patent/clean/dry. Will continue to monitor for changes and safety.
--- NOTE | 2017-12-20 04:00 | NUR ---
Nursing Notes Patient resting in bed with eyes closed. No distress or pain noted. IV site patent/clean/dry. Fall precautions in place.
[2017-12-20] MEDS: PIPERACILLIN/TAZO 3.375/DEX-IS 50 ML IV SCH ×4 (05:18→23:58)
[2017-12-20] MEDS: NACL 0.9% 1,000 ML IV SCH (05:18)
--- NOTE | 2017-12-20 06:42 | NUR ---
Closing Notes Patient resting in bed with eyes closed, easily aroused. Patient denies any acute distress or pain at this time. Breathing is even and unlabored. IV site patent/clean/dry, no S/S infection/infiltration noted. Needs addressed throughout shift. Call light in hand, fall precautions in place. Will continue to monitor for changes and safety, and endorse all patient care/needs to oncoming nurse.
[2017-12-20 07:03] LABS: CALCIUM 7.8 mg/dL (8.4-11.0); CREATININE 0.99 mg/dL (0.55-1.30); POTASSIUM 3.2 mmol/L (3.5-5.1); THYROID STIMULATING HORMONE 0.34 uIu/mL (0.34-4.82); TOTAL BILIRUBIN 0.8 mg/dL (0.0-1.0)
[2017-12-20 07:06] LABS: EOSINOPHILS % (AUTO) 0.2 % (0.0-4.0); HEMATOCRIT 40.1 % (36-48); HEMOGLOBIN 13.2 g/dL (12.0-16.0); LYMPHOCYTES # (AUTO) 0.6 K/uL (1.0-5.5); LYMPHOCYTES % (AUTO) 4.4 % (20.5-51.5); MEAN CORPUSCULAR HEMOGLOBIN 29 pg (27-31); MEAN CORPUSCULAR HGB CONC 33 % (32-36); MEAN CORPUSCULAR VOLUME 89 fL (79.0-98.0); MONOCYTES # (AUTO) 0.5 K/uL (0.0-1.0); MONOCYTES % (AUTO) 3.7 % (1.7-9.3); NEUTROPHILS # (AUTO) 12.8 K/uL (1.8-7.7); NEUTROPHILS % (AUTO) 91.7 % (40.0-70.0); PLATELET COUNT (AUTO) 208 K/uL (130-430); RED BLOOD CELL COUNT(AUTO) 4.53 MIL/uL (4.2-6.2); RED CELL DISTRIBUTION WIDTH 14.1 % (9.0-15.0); WHITE BLOOD COUNT (AUTO) 13.9 K/uL (4.8-10.8)
--- NOTE | 2017-12-20 07:50 | NUR ---
OPENING NOTES, PT IN BED, MOANING, PT C/O OF PAIN 7/10 ON HER LEGS. O2 SAT IS 92% ON O4 LI, RR IS 24. . PT RECEIVING NS AT 150 CC/ HR VIA R. IJ #20 ANGIOCATH. NO S/S OF INFILTRATION AND SWELLING. SALINE LOCH ON LEFT UPPER ARM NOTED. IT IS INTACT AND PATENT. NO S/S OF INFILTRATION. SAFETY PRECAUTION IN PLACE. CALL LIGHT IN REACH. BED IN LOW POSITION. WILL CONT TO MONITOR.
[2017-12-20] MEDS: MORPHINE 2 MG/ML INJ. SYRINGE IVP PRN (08:24)
[2017-12-20] MEDS: FUROSEMIDE 40 MG/4 ML VIAL IVP SCH (08:38)
--- NOTE | 2017-12-20 08:45 | NUR ---
0825 AM: SLITTER AND REWINDER CAME TO CHECK PT, FOR RR OF 40 AND LOW OT SAT. EARLIER PT WAS CHECKED AT 0800, FOUND PT TO BED TACHYPNEIC AT 44 BPM AND O2 SAT WAS AT 88% ON 4L PER NC. PT INITIALLY PLACE ON 15 LIT PER NON REBREATHER MASK. , O2 SAT WENT UP TO 96% BUT RR IS STILL ON THE 40'S. SLITTER AND REWINDER WAS CALLED AT 0823. PT WAS GIVEN MORPHINE AND SOLUMEDROL ORDERED. IVF STOPPED PER SLITTER AND REWINDER. SLITTER AND REWINDER ENDED AT 0845.
[2017-12-20] MEDS ORDERED: methylPREDNISolone SOD SUCC/PF 62.5 MG/ML VIAL ONE (08:47)
[2017-12-20] MEDS ORDERED: MORPHINE 2 MG/ML INJ. SYRINGE ONE (08:48)
--- NOTE | 2017-12-20 08:51 | NUR ---
Nutrition Update William Scale 16 noted. Pt admitted for BLE Cellulitis Diet: cardiac low cholesterol low fat 2gm Na diet BMI: 27.4 kg/m2 RD to follow per nutrition care standards.
[2017-12-20] MEDS: ALBUTEROL SULFATE 0.083% 2.5 MG/3 ML VIAL.NEB INH PRN ×2 (08:56→08:59)
[2017-12-20] MEDS ORDERED: methylPREDNISolone SOD SUCC/PF 62.5 MG/ML VIAL IVP SCH (09:00)
--- NOTE | 2017-12-20 09:25 | NUR ---
TRANSFER PT TRANSFERRED FROM TELEMETRY TO ICU RM 4 POST RAPID RESPONSE. PT IS AROUSABLE TO VERBAL STIMULUS. RECEIVING O2 VIA NON-REBREATHER MASK AT 10 LITERS. DENIES ANY CHEST PAIN. DR. ALBARRAN CAME TO CHECK ON PT. ORIENTED TO CALL-LIGHT AND ENVIRONMENT. WILL BE SEEN ON CONSULT BY DR. SMITH.
--- NOTE | 2017-12-20 09:45 | NUR ---
REPORT REPORT RECEIVED FROM TELE NURSESARAH.
--- NOTE | 2017-12-20 10:00 | NUR ---
PT TRANSFERRED TO ICU-4, BEDSIDE REPORT GIVEN TO MARIA GUADALUPE ALEGRIA
--- NOTE | 2017-12-20 10:31 | NUR ---
REPORT CARE ENDORSED TO Clarissa HOANG RN
--- NOTE | 2017-12-20 10:31 | NUR ---
RECEIVED REPORT/RESUMING CARE RECEIVED REPORT AT BEDSIDE BY CHARGE NURSE, EVELYN. PT A/O X 3, SPEAKS FRISIAN AND LETHARGIC. VSS ON 10L O2 THERAPY VIA NON-REBREATHER MASK, NO COMPLAINT OF PAIN. BOTH ANGIOCATH SITES PATENT, DRESSINGS DRY AND INTACT. BED IN LOWEST POSITION, CALL LIGHT WITHIN REACH, AND BED IS LOCATED IN VISUAL RANGE OF NURSING STATION.
[2017-12-20] MEDS: POTASSIUM CHLORIDE 20 MEQ TAB.PRT.SR PO SCH ×2 (10:51→20:09)
[2017-12-20] MEDS: LACTOBACILLUS RHAMNOSUS GG 1 CAP CAPSULE PO SCH (10:51)
[2017-12-20] MEDS: ENOXAPARIN SODIUM 40 MG/0.4 ML SYRINGE SUBCUT SCH (10:52)
[2017-12-20] MEDS: D5NS 1,000 ML IV SCH (10:58)
--- NOTE | 2017-12-20 14:01 | NUR ---
Dietitian Recommendations *Recommend continuing NPO per MD orders. *Recommend advance diet when medically appropriate. (cardiac low cholesterol low fat diet) Please see Nutritional Assessment for details. JAIMEE, RD
[2017-12-20] MEDS: POTASSIUM CHLORIDE 20 MEQ TAB.PRT.SR PO PRN (18:48)
[2017-12-20] MEDS: hydrALAZINE HCL 20 MG/ML VIAL IVP PRN (18:49)
--- NOTE | 2017-12-20 19:30 | NUR ---
ENDORSEMENT REPORT ENDORSED TO MARIA GUADALUPE SOLIMAN AT BEDSIDE.
--- NOTE | 2017-12-20 19:30 | NUR ---
OPENING NOTES Received report from AM shift RN, Pt is AAOX4 with VSS tolerating 100% non rebreather with O2 saturation of 96%. Skin is intact with no wounds noted. Swollen lower extremity noted with callus formation noted on both feet. IV on PERRY 22g noted and R external jugular 20g patent with blood return noted, no sign of infiltration and redness noted. Safety precaution observed, call light within reach. Will continue to monitor Pt.
[2017-12-20] MEDS: IPRATROPIUM BROM 0.5 MG/2.5 ML VIAL.NEB (ATROVENT) INH SCH (19:59)
[2017-12-20] MEDS: ALBUTEROL SULFATE 0.083% 2.5 MG/3 ML VIAL.NEB INH SCH (20:00)
[2017-12-20] MEDS: methylPREDNISolone SOD SUCC/PF 62.5 MG/ML VIAL IVP SCH (20:08)
[2017-12-20] MEDS: CARVEDILOL 12.5 MG TABLET (COREG) PO SCH (20:09)
[2017-12-21] VITALS (19 sets, daily range): BP systolic 108–158
--- NOTE | 2017-12-21 | NUR ---
RN NOTES Pt in bed, resting, no acute distress at this time. Will continue to monitor Pt.
[2017-12-21] MEDS: IPRATROPIUM BROM 0.5 MG/2.5 ML VIAL.NEB (ATROVENT) INH SCH ×4 (00:58→19:40)
[2017-12-21] MEDS: ALBUTEROL SULFATE 0.083% 2.5 MG/3 ML VIAL.NEB INH SCH ×4 (00:58→19:39)
--- NOTE | 2017-12-21 01:15 | NUR ---
RESPIRATORY Pt's O2 saturation at 99%, wean off to 6L Oximizer, will continue to monitor Pt.
--- NOTE | 2017-12-21 02:00 | NUR ---
RESPIRATORY Pt's O2 saturation at 87%, Placed O2 to 100% non rebreather mask, will continue to monitor Pt.
--- NOTE | 2017-12-21 02:10 | NUR ---
BP Pt systolic at 163, gave prn BP medication. Will continue to monitor Pt.
[2017-12-21] MEDS: hydrALAZINE HCL 20 MG/ML VIAL IVP PRN (02:11)
[2017-12-21] MEDS: MORPHINE 2 MG/ML INJ. SYRINGE IVP PRN ×2 (02:33→10:23)
--- NOTE | 2017-12-21 04:30 | NUR ---
CHG CHG bath given Pt tolerate well.
[2017-12-21] MEDS: PIPERACILLIN/TAZO 3.375/DEX-IS 50 ML IV SCH ×3 (05:03→17:13)
[2017-12-21] MEDS: D5NS 1,000 ML IV SCH (05:03)
--- NOTE | 2017-12-21 05:15 | NUR ---
RESPIRATORY Pt's O2 saturation at 96%, wean off to 10L simple mask, will continue to monitor Pt.
[2017-12-21 06:20] LABS: BASOPHILS % (AUTO) 0.1 % (0.0-2.0); EOSINOPHILS % (AUTO) 0.1 % (0.0-4.0); HEMATOCRIT 37.2 % (36-48); LYMPHOCYTES # (AUTO) 0.4 K/uL (1.0-5.5); LYMPHOCYTES % (AUTO) 3.8 % (20.5-51.5); MEAN CORPUSCULAR HEMOGLOBIN 29 pg (27-31); MEAN CORPUSCULAR HGB CONC 32 % (32-36); MEAN CORPUSCULAR VOLUME 89 fL (79.0-98.0); MONOCYTES # (AUTO) 0.3 K/uL (0.0-1.0); MONOCYTES % (AUTO) 2.9 % (1.7-9.3); NEUTROPHILS # (AUTO) 11.1 K/uL (1.8-7.7); NEUTROPHILS % (AUTO) 93.1 % (40.0-70.0); PLATELET COUNT (AUTO) 209 K/uL (130-430); RED BLOOD CELL COUNT(AUTO) 4.17 MIL/uL (4.2-6.2); RED CELL DISTRIBUTION WIDTH 14.2 % (9.0-15.0); WHITE BLOOD COUNT (AUTO) 11.8 K/uL (4.8-10.8)
--- NOTE | 2017-12-21 06:24 | NUR ---
CLOSING NOTES Pt in bed resting, No acute distress at this time, iv lines, skin checked. Will give report to oncoming RN VIA SBAR.
[2017-12-21 06:35] LABS: ALBUMIN 1.7 g/dL (3.4-4.8); CALCIUM 8.1 mg/dL (8.4-11.0); CREATININE 0.86 mg/dL (0.55-1.30); POTASSIUM 3.2 mmol/L (3.5-5.1); TOTAL BILIRUBIN 0.5 mg/dL (0.0-1.0)
--- NOTE | 2017-12-21 08:00 | NUR ---
RN OPENING NOTE PT AA/O X 4, SPEAKS FILIPINO AND COOPERATIVE VSS ON 10L O2 THERAPY VIA SIMPLE MASK. BOTH ANGIOCATH SITES PATENT, DRESSINGS DRY AND INTACT. BED IS IN LOWEST POSITION, CALL LIGHT WITHIN REACH, AND BED IS LOCATED IN VISUAL RANGE OF NURSING STATION.
--- NOTE | 2017-12-21 08:29 | NUR ---
DR. ALBARRAN AT BEDSIDE
--- NOTE | 2017-12-21 10:04 | NUR ---
Paged Dr. Philip for orders and lab results. Waiting for call back. Addendum: 12/21/17 at 1049 by Manda Vincent RN Dr. Philip return call at 1038. No new orders made.
[2017-12-21] MEDS: methylPREDNISolone SOD SUCC/PF 62.5 MG/ML VIAL IVP SCH ×2 (10:15→21:26)
[2017-12-21] MEDS: FUROSEMIDE 40 MG/4 ML VIAL IVP SCH (10:17)
[2017-12-21] MEDS: LORazepam 2 MG/ML VIAL IVP PRN (10:18)
[2017-12-21] MEDS: POTASSIUM CHLORIDE 20 MEQ TAB.PRT.SR PO SCH ×2 (10:19→21:24)
[2017-12-21] MEDS: hydrALAZINE HCL 25 MG TABLET PO SCH ×2 (10:20→21:25)
[2017-12-21] MEDS: LACTOBACILLUS RHAMNOSUS GG 1 CAP CAPSULE PO SCH (10:20)
[2017-12-21] MEDS: CARVEDILOL 12.5 MG TABLET (COREG) PO SCH ×2 (10:21→21:25)
[2017-12-21] MEDS: ENOXAPARIN SODIUM 40 MG/0.4 ML SYRINGE SUBCUT SCH (10:25)
--- NOTE | 2017-12-21 10:30 | NUR ---
O2 CHANGED TO 4L NC WITH HUMIDIFIER PER DR. ALBARRAN PT TOLERATING WELL
--- NOTE | 2017-12-21 11:30 | NUR ---
O2 CHANGED TO 7L VIA NC DUE TO MILD DESATURATION DR. SMITH AWARE.
--- NOTE | 2017-12-21 16:10 | NUR ---
ORDER TO TRANSFER TO TELEMETRY CONTINUING CARE IN ICU-4 UNTIL A TELEMETRY NURSE IS AVAILABLE.
--- NOTE | 2017-12-21 16:30 | NUR ---
CALLED DR. REEVES FOR PSYCH CONSULT PER DR. NAVA SPOKE TO MARIA FERNANDA IN MD OFFICE. FAXED FACE SHEET REQUESTING, AWAITING MD CALLBACK.
--- NOTE | 2017-12-21 17:20 | NUR ---
XFER TO TELE ROOM 120-A PT TRANSPORTED WITH BANQUET SUPERVISOR AND O2 THERAPY PER ACLS GUIDELINES. REPORT ENDORSED TO MARIA GUADALUPE GERONIMO AT BEDSIDE.
--- NOTE | 2017-12-21 17:29 | NUR ---
transfer Note Report received form [facility] ICU nurse. Patient is in room 120-A. Current O2 sat is 91-97% on 7L o2 via. Patient is awake and oriented x2. IV is on the LUE 22g running D5NS@50. Call light is within reach and bed is in low position. Patient has personal belongings, however, is refusing to have her purse checked. Will continue to closely monitor.
--- NOTE | 2017-12-21 18:10 | NUR ---
RN Note Patient is refusing to place the oxygen placed until she goes outside to smoke. D/t to her medical condition and need for oxygen it is unsafe for her to go outside and smoke. Current O2 sat is 90%. Patient is also refusing to have her personal belongings including her purse to be inventoried. Will continue to monitor.
--- NOTE | 2017-12-21 18:58 | NUR ---
Closing Note patient is still refusing to place the oxygen on current o2 sat is 92%. patient is still refusing have her belongings checked. IV is on the left arm running D5NS. Call light is within reach, bed alarm, call light is within reach. Will endorse care to oncoming nurse.
--- NOTE | 2017-12-21 20:00 | NUR ---
Opening notes Pt AAOx4. VSS. No s/s distress noted. SR on the monitor. O2 7L via NC satting at 95%. IVF infusing as ordered PERRY 22G no infiltration noted. R. IJ 20G flushes well with NS but no blood return noted. Pt had breathing txmt. Safety measure in place. Call light within reach. Will continue to monitor.
[2017-12-22 00:10] VITALS: BP_SYST 164
[2017-12-22] MEDS: D5NS 1,000 ML IV SCH (01:45)
--- NOTE | 2017-12-22 04:35 | NUR ---
Rounds Pt asleep, no s/s distress noted. Pt satting at 92% on room air. IVF infusing as ordered PERRY no infiltration noted. Call light within reach. Will continue to monitor.
--- NOTE | 2017-12-22 05:25 | NUR ---
Pt refused Chest Xray and lab draw this AM.
[2017-12-22] MEDS: PIPERACILLIN/TAZO 3.375/DEX-IS 50 ML IV SCH ×2 (06:22)
[2017-12-22] MEDS: LORazepam 2 MG/ML VIAL IVP PRN (06:27)
--- NOTE | 2017-12-22 07:00 | NUR ---
Left AMA Pt AAO, anxious. Pt signed AMA form and states she just want to smoke outside and she doesn't care. Explained to pt if she develops any Chest pain or any severe pain to go back to ER. IV lock x 2 discontinued with catheter tip intact, no active bleeding noted. Pt satting at 91-92% on room air, 95% on 5L O2. No s/s distress. Security paged. Paged and spoke with Dr. Rivera and informed him that she signed AMA form and refused CXR and lab draw this am. Tele box removed and all belongings returned to pt.
--- NOTE | 2017-12-22 08:39 | NUR ---
Consult cancelled: Called exchange and informed them that patient left AMA and consult for Dr. Sotomayor needed to be cancelled. Spoke with Lor.
== END 2017-12-22 06:55 | disposition left against medical advice (07) | DRG 871 ==
LOC: SED 12:00 → STU 17:13 → SIC 12-20 09:22 → STU 12-21 17:26
PROVIDERS: ADMIT Family Medicine; ATTEND Family Medicine
DX: A41.9 Sepsis, unspecified organism (principal); J69.0 Pneumonitis due to inhalation of food and vomit; G92 Toxic encephalopathy; J96.01 Acute respiratory failure with hypoxia; E87.1 Hypo-osmolality and hyponatremia; I31.3 Pericardial effusion (noninflammatory); I50.40 Unspecified combined systolic (congestive) and diastolic (congestive) heart failure; L03.115 Cellulitis of right lower limb; L03.116 Cellulitis of left lower limb; J44.1 Chronic obstructive pulmonary disease with (acute) exacerbation; D75.1 Secondary polycythemia; E87.6 Hypokalemia; F14.10 Cocaine abuse, uncomplicated; G89.4 Chronic pain syndrome; I11.0 Hypertensive heart disease with heart failure; F15.90 Other stimulant use, unspecified, uncomplicated; E86.0 Dehydration; Z53.21 Procedure and treatment not carried out due to patient leaving prior to being seen by health care provider; I16.0 Hypertensive urgency; Z86.718 Personal history of other venous thrombosis and embolism; Z87.891 Personal history of nicotine dependence; Z90.49 Acquired absence of other specified parts of digestive tract; Z88.5 Allergy status to narcotic agent; Z88.1 Allergy status to other antibiotic agents; Z88.8 Allergy status to other drugs, medicaments and biological substances; Z79.899 Other long term (current) drug therapy
CPT/HCPCS: 36415; 36600; 71045; 80048; 80053; 80061; 80307; 81000-TC; 82550-TC; 82803-TC; 82962; 83605; 83690-TC; 83735-TC; 83880; 84100-TC; 84443-TC; 84484; 85025; 85379; 85610-TC; 85730-TC; 87040-TC; 87081; 87086; 90656; 93005; 93306; 93970; 94640; 94760; 96365; 96375; 99285; G0480; G0481; G0482; J0360; J0696; J1650; J1940; J2060; J2270; J2405; J2543; J2930; J3475; J7030; J7040; J7042; J7613

== ENCOUNTER 2017-12-23 22:23 | Emergency (ER) | payer OTHER, MEDICAID ==
[~2017-12-23] VITALS: Ht 167.6 cm; Wt 61.2 kg
[2017-12-23 22:24] VITALS: BP_SYST 209
--- NOTE | 2017-12-23 22:47 | NUR ---
Patient to ER bed 05 to gown for evaluation. Side rails up. Report given to MARIA GUADALUPE Bardales
--- NOTE | 2017-12-23 22:47 | NUR ---
Pt c/o generalized rash, chest and back pain and anxiety x 1 day. Red and raised rash generalized to all extremities, mild SOB noted. Pt was admitted r/t pneumonia and left AMA. Pt states that she was under a lot of stress so she had to leave to take care of things. Pt returns r/t symptoms worsening. Airway patent, SPO2 100% RA. Addendum: 12/24/17 at 0446 by CHARITY Pt also dx with cellulitis to LLE. Skin intact, but inflammed and red.
--- NOTE | 2017-12-23 23:00 | NUR ---
Dr. Shelton at bedside.
[2017-12-23] MEDS ORDERED: methylPREDNISolone SOD SUCC/PF 62.5 MG/ML VIAL IM ONE (23:45)
[2017-12-23] MEDS ORDERED: cloNIDine HCL 0.1 MG TABLET PO ONE (23:45)
[2017-12-23] MEDS ORDERED: DIPHENHYDRAMINE INJ 50 MG/ML VIAL IM ONE (23:45)
[2017-12-23] MEDS ORDERED: LORazepam 2 MG/ML VIAL (FOR ER USE) IM ONE (23:45)
--- NOTE | 2017-12-24 00:30 | NUR ---
Pt resting quietly, even and non-labored respirations, VSS.
[2017-12-24] MEDS ORDERED: cloNIDine HCL 0.1 MG TABLET PO ONE (00:45)
--- NOTE | 2017-12-24 01:10 | NUR ---
Denies c/o pain or discomfort, improvement in breathing and pain. No needs verbalized at this time.
[2017-12-24 01:40] VITALS: BP_SYST 132
--- NOTE | 2017-12-24 01:41 | NUR ---
Patient given written and verbal discharge instructions and verbalizes understanding. ER MD discussed with patient the results and treatment provided. Patient in stable condition. ID arm band removed. Rx of Benadryl, Prednisone, Xanax given. Patient educated on pain management and to follow up with PMD. Pain Scale 0/10. Opportunity for questions provided and answered. Medication side effect fact sheet provided.
== END 2017-12-24 01:41 | disposition home or self-care (01) ==
LOC: SED 22:23
DX: L50.9 Urticaria, unspecified (principal); F41.9 Anxiety disorder, unspecified; I10 Essential (primary) hypertension; Z88.1 Allergy status to other antibiotic agents; Z88.6 Allergy status to analgesic agent; Z88.5 Allergy status to narcotic agent; Z79.899 Other long term (current) drug therapy
CPT/HCPCS: 93005; 96372; 99284; J1200; J2060; J2930

== ENCOUNTER 2019-02-23 14:32 | Emergency (ER) | payer OTHER, MEDICAID ==
[~2019-02-23] VITALS: Ht 165.1 cm; Wt 68.0 kg
[2019-02-23 14:32] VITALS: BP_SYST 200
[2019-02-23] MEDS ORDERED: NACL 0.9% 1,000 ML IV ONE (15:49)
[2019-02-23] MEDS ORDERED: cloNIDine HCL 0.1 MG TABLET PO ONE ×2 (16:00→17:30)
[2019-02-23 16:32] LABS: BASOPHILS # (AUTO) 0.1 K/uL (0.0-0.2); BASOPHILS % (AUTO) 1.1 % (0.0-2.0); EOSINOPHILS # (AUTO) 0.3 K/uL (0.0-0.4); EOSINOPHILS % (AUTO) 4.4 % (0.0-4.0); HEMATOCRIT 45.9 % (36-48); HEMOGLOBIN 15.6 g/dL (12.0-16.0); LYMPHOCYTES # (AUTO) 2.7 K/uL (1.0-5.5); LYMPHOCYTES % (AUTO) 42.8 % (20.5-51.5); MEAN CORPUSCULAR HEMOGLOBIN 31 pg (27-31); MEAN CORPUSCULAR HGB CONC 34 % (32-36); MEAN CORPUSCULAR VOLUME 91 fL (79.0-98.0); MONOCYTES # (AUTO) 0.7 K/uL (0.0-1.0); MONOCYTES % (AUTO) 11.7 % (1.7-9.3); NEUTROPHILS # (AUTO) 2.5 K/uL (1.8-7.7); PLATELET COUNT (AUTO) 313 K/uL (130-430); RED BLOOD CELL COUNT(AUTO) 5.07 MIL/uL (4.2-6.2); RED CELL DISTRIBUTION WIDTH 13.6 % (9.0-15.0); WHITE BLOOD COUNT (AUTO) 6.3 K/uL (4.8-10.8)
[2019-02-23 16:50] LABS: INR 0.9 (0.8-1.2); PROTHROMBIN TIME 9.1 SECS (9.5-12.5)
[2019-02-23 17:17] LABS: CALCIUM 9.3 mg/dL (8.4-11.0); CREATININE 0.95 mg/dL (0.55-1.30); POTASSIUM 3.7 mmol/L (3.5-5.1)
[2019-02-23 17:22] LABS: ALBUMIN 3.6 g/dL (3.4-4.8); TOTAL BILIRUBIN 0.4 mg/dL (0.0-1.0)
[2019-02-23] MEDS ORDERED: ALBUTEROL SULFATE 0.083% 2.5 MG/3 ML VIAL.NEB INH ONE ×3 (18:00→19:00)
[2019-02-23] MEDS ORDERED: IPRATROPIUM BROM 0.5 MG/2.5 ML VIAL.NEB (ATROVENT) INH ONE ×3 (18:00→19:00)
[2019-02-23] MEDS ORDERED: methylPREDNISolone SOD SUCC/PF 62.5 MG/ML VIAL IVP ONE (18:00)
[2019-02-23] MEDS ORDERED: guaiFENesin 200 MG/10 ML UDC PO ONE (19:30)
[2019-02-23 19:54] LABS: CKMB RELATIVE INDEX 1.4 (0.0-2.9); CREATINE KINASE MB 6.8 ng/mL (0-3.6)
[2019-02-23 20:10] VITALS: BP_SYST 157
== END 2019-02-23 20:10 | disposition home or self-care (01) ==
LOC: SED 14:32
DX: J40 Bronchitis, not specified as acute or chronic (principal); G89.29 Other chronic pain; M25.561 Pain in right knee; I10 Essential (primary) hypertension; F17.210 Nicotine dependence, cigarettes, uncomplicated; Z71.6 Tobacco abuse counseling; Z88.5 Allergy status to narcotic agent; Z88.1 Allergy status to other antibiotic agents; Z88.6 Allergy status to analgesic agent; Z79.899 Other long term (current) drug therapy
CPT/HCPCS: 36415; 71045; 80053; 82150; 82550; 82553; 83605; 83690; 84484; 85025; 85610; 85730; 87040; 93005; 94640; 96374; 99284; J2930; J7030; J7613

== ENCOUNTER 2019-03-10 22:28 | Inpatient (IN) | payer OTHER, MEDICAID ==
[~2019-03-10] VITALS: Ht 165.1 cm; Wt 68.0 kg
[2019-03-10 22:33] VITALS: BP_SYST 164
--- NOTE | 2019-03-10 22:33 | NUR ---
Patient triaged and placed in waiting room. VSS and patient appears in no acute distress at this time. Accompanied by FAM MEMBER, awaiting available bed, and MD notified of need for MSE.
[2019-03-10 23:26] LABS: BASOPHILS % (AUTO) 0.5 % (0.0-2.0); EOSINOPHILS % (AUTO) 0.5 % (0.0-4.0); HEMATOCRIT 45.6 % (36-48); HEMOGLOBIN 15.6 g/dL (12.0-16.0); LYMPHOCYTES # (AUTO) 0.5 K/uL (1.0-5.5); LYMPHOCYTES % (AUTO) 5.9 % (20.5-51.5); MEAN CORPUSCULAR HEMOGLOBIN 31 pg (27-31); MEAN CORPUSCULAR HGB CONC 34 % (32-36); MEAN CORPUSCULAR VOLUME 90 fL (79.0-98.0); MONOCYTES # (AUTO) 1.1 K/uL (0.0-1.0); MONOCYTES % (AUTO) 12.4 % (1.7-9.3); NEUTROPHILS # (AUTO) 6.8 K/uL (1.8-7.7); NEUTROPHILS % (AUTO) 80.7 % (40.0-70.0); PLATELET COUNT (AUTO) 252 K/uL (130-430); RED BLOOD CELL COUNT(AUTO) 5.09 MIL/uL (4.2-6.2); RED CELL DISTRIBUTION WIDTH 13.8 % (9.0-15.0); WHITE BLOOD COUNT (AUTO) 8.5 K/uL (4.8-10.8)
[2019-03-10 23:37] LABS: CALCIUM 8.3 mg/dL (8.4-11.0); CREATININE 1.18 mg/dL (0.55-1.30); POTASSIUM 3.6 mmol/L (3.5-5.1)
[2019-03-10 23:43] LABS: ALBUMIN 3.4 g/dL (3.4-4.8); TOTAL BILIRUBIN 0.3 mg/dL (0.0-1.0)
--- NOTE | 2019-03-11 01:55 | NUR ---
Placed in room 7 . Placed on mechanical detailer, blood pressure machine and pulse oximeter. To gown for exam. Side rails up. Report given to MAGDALENO LERMA.
--- NOTE | 2019-03-11 01:55 | NUR ---
ER at bedside examining patient.
[2019-03-11] MEDS ORDERED: OSELTAMIVIR PHOSPHATE 75 MG CAPSULE PO ONE (02:00)
[2019-03-11] MEDS ORDERED: methylPREDNISolone SOD SUCC/PF 62.5 MG/ML VIAL IVP ONE (02:00)
[2019-03-11] MEDS ORDERED: IPRATROPIUM/ALBUTEROL SULFATE 3 ML AMPUL.NEB (DUONEB) INH ONE ×3 (02:00)
--- NOTE | 2019-03-11 02:00 | NUR ---
Pt brought to ED by boyfriend. Pt states that she has had cough/congestion and flu like symptoms for approximately 1 week. Pt states that she has history of copd. Pt presents to the ER with mild respiratory distress. Pt ambulatory, awake, alert, oriented x4. Pt Denies chest pain, any other medical complaint at this time. VSS
[2019-03-11] MEDS ORDERED: IBUPROFEN 600 MG TABLET PO ONE (02:15)
--- NOTE | 2019-03-11 02:55 | NUR ---
Pt resting in ED bed comfortably. No acute distress.
--- NOTE | 2019-03-11 03:30 | NUR ---
Pt resting in ED bed, Pt states she agrees to be admitted.
--- NOTE | 2019-03-11 04:27 | NUR ---
Pt Resting in ED bed. No acute distress noted.
[2019-03-11] MEDS ORDERED: NACL 0.9% 1,000 ML IV ONE (04:30)
[2019-03-11] MEDS ORDERED: IBUPROFEN 600 MG TABLET ONE (04:34)
--- NOTE | 2019-03-11 05:00 | NUR ---
Dr. Ascencio determined a central line is needed for hydration, antibiotics and further treatment
[2019-03-11] MEDS ORDERED: LEVOFLOXACIN 500 MG TABLET PO ONE (05:45)
[2019-03-11] MEDS ORDERED: PREDNISONE 20 MG TABLET PO ONE (05:45)
--- NOTE | 2019-03-11 06:22 | NUR ---
Pt Restin gin ED bed. No acute distress noted.
[2019-03-11] MEDS ORDERED: MORPHINE 4 MG/ML INJ. SYRINGE IVP ONE (06:30)
--- NOTE | 2019-03-11 07:00 | NUR ---
Patient will be admitted to care of . Admitted to tele unit. Will go to room 135. Belongings list completed. Complete and up to date summary report printed. SBAR report to be given at bedside with opportunity for questions.
--- NOTE | 2019-03-11 07:22 | NUR ---
Central line placed by . Right Internal Jugular. Placement with ultrasound. Sterile procedure observed
[2019-03-11] MEDS ORDERED: DOCUSATE SODIUM 100 MG/10 ML UDC PO PRN (08:00)
[2019-03-11] MEDS ORDERED: ONDANSETRON HCL 4 MG/2 ML VIAL IVP PRN (08:00)
[2019-03-11] MEDS ORDERED: ACETAMINOPHEN 500 MG TABLET PO PRN (08:00)
[2019-03-11] MEDS ORDERED: POTASSIUM CHLORIDE 40 MEQ in NS 250 ML IV PRN ×2 (08:00→08:15)
[2019-03-11] MEDS ORDERED: IPRATROPIUM/ALBUTEROL SULFATE 3 ML AMPUL.NEB (DUONEB) INH PRN (08:15)
--- NOTE | 2019-03-11 09:20 | NUR ---
ADMIT NOTE Received pt from ER to the floor with a diagnosis of COPD WITH influenza. Admission process initiated. patient oriented to pain management, safety and call light-teach back done.
--- NOTE | 2019-03-11 09:21 | NUR ---
CONSULTATION PAGED REASON FOR CONSULTATION:COPD, INFLUENZA WAS CONSULT CALLED?Y PERSON WHO WAS NOTIFIED:VIVEK CONSULTING PHYSICIAN:ROWENA GUTIERREZ OUTDOOR PURSUITS INSTRUCTOR SPECIALTY:PULMONARY OUTDOOR PURSUITS INSTRUCTOR PHONE NUMBER:[phone] ORDERING PHYSICIAN:GIGI THOMAS
[2019-03-11 09:29] VITALS: BP_SYST 123
--- NOTE | 2019-03-11 09:30 | NUR ---
Opening note patient resting in bed at this time, A/ox4, no complaints of pain. Iv patent, intact, and infusing fluids as ordered. patient falls asleep in middle of conversation. awakens to answer and falls asleep again. on droplet precautions for influenza, on safety and aspiration precautions, HOB kept elevated, bed alarm on, 3 side rails up, call light within reach. patient in stable condition. Will continue to monitor.
[2019-03-11] MEDS: PANTOPRAZOLE SODIUM 40 MG TAB PO SCH (10:10)
[2019-03-11] MEDS: NACL 0.9% 1,000 ML IV SCH ×2 (10:13→21:56)
--- NOTE | 2019-03-11 10:15 | NUR ---
patient refusing ABG patient will not allow ABG to be drawn. Attempted to encourage patient, patient continued to refuse. MD aware.
[2019-03-11 10:29] LABS: BILIRUBIN,URINE NEGATIVE (NEGATIVE); BLOOD, URINE 3+ (NEGATIVE); CLARITY/URINE OTHER (CLEAR); COLOR,URINE YELLOW (YELLOW); GLUCOSE,URINE NEGATIVE (NEGATIVE); KETONES,URINE NEGATIVE (NEGATIVE); LEUKOCYTE ESTERASE ,URINE NEGATIVE (NEGATIVE); NITRITE, URINE NEGATIVE (NEGATIVE); PROTEIN URINE 2+ (NEGATIVE); UROBILINOGEN,URINE 0.2 (0.2-1.0)
[2019-03-11 10:43] VITALS: BP_SYST 147
[2019-03-11 10:45] LABS: BARBITURATE, URINE NEGATIVE (NEG <=200); BENZODIAZEPINE, URINE NEGATIVE (NEG <=150); CANNABINOID, URINE NEGATIVE (NEG <=50); COCAINE, URINE NEGATIVE (NEG <=150); METHAMPHETAMINES SCREEN,URINE POSITIVE (NEG <=500); OPIATE, URINE POSITIVE (NEG <=100); PHENCYCLIDINE SCREEN,URINE NEGATIVE (NEG <=25); UR TRICYCLIC ANTIDEPRESSANTS NEGATIVE (NEG <=300); URINE AMPHETAMINE POSITIVE (NEG <=500); URINE METHADONE NEGATIVE (NEG <=200); URINE OXYCODONE SCREEN NEGATIVE (NEG <=100); URINE PROPOXYPHENE SCREEN NEGATIVE (NEG <=300)
[2019-03-11 10:52] LABS: WBC,URINE 0-3 /HPF (0-3)
[2019-03-11 10:53] LABS: BACTERIA,URINE FEW /HPF (None Seen)
[2019-03-11] MEDS: IPRATROPIUM/ALBUTEROL SULFATE 3 ML AMPUL.NEB (DUONEB) INH SCH ×4 (11:07→23:05)
[2019-03-11] MEDS: methylPREDNISolone SOD SUCC/PF 62.5 MG/ML VIAL IVP SCH ×2 (11:31→20:00)
[2019-03-11 11:36] LABS: FREE T4 (FREE THYROXINE) 1.1 ng/dl (0.8-1.5); PHOSPHORUS 4.4 mg/dL (2.7-4.5); PROTHROMBIN TIME 10.1 SECS (9.5-12.5); THYROID STIMULATING HORMONE 0.1 uIu/mL (0.36-3.74)
--- NOTE | 2019-03-11 12:30 | NUR ---
Lunch patient sitting up in bed at this time, eating lunch, tolerating well. no nausea, no vomiting noted.
[2019-03-11] MEDS: HYDROcodone/ACETAMIN 7.5-325 MG TAB PO PRN ×2 (14:29→21:28)
[2019-03-11] MEDS ORDERED: LISINOPRIL 10 MG TABLET (PRINIVIL) PO ONE (14:30)
--- NOTE | 2019-03-11 14:45 | NUR ---
ambulating Patient walked to the restroom and back to bed with assistance, steady gait but patient falling asleep on toilet. Assisted patietn back to bed. Patient in stable condition.
--- NOTE | 2019-03-11 16:00 | NUR ---
rounds Offered to assist patient to the restroom. patient walked to the restroom, and back to bed with steady gait. no other needs at this time.
[2019-03-11 16:17] VITALS: BP_SYST 130
--- NOTE | 2019-03-11 18:20 | NUR ---
closing note patient resting in bed at this time, A/ox4, no complaints of pain. Iv patent, intact, and infusing fluids as ordered. No infiltration noted. On droplet precautions for influenza, on safety and aspiration precautions, HOB kept elevated, bed alarm on, 3 side rails up, call light within reach. patient in stable condition. All needs met.
[2019-03-11 19:00] VITALS: BP_SYST 137
[2019-03-11 20:00] VITALS: BP_SYST 137
[2019-03-11] MEDS: methylPREDNISolone SOD SUCC 40 MG/ML VIAL IVP SCH ×2 (21:29→21:31)
[2019-03-11] MEDS: OSELTAMIVIR PHOSPHATE 75 MG CAPSULE PO SCH (21:29)
[2019-03-12 00:02] VITALS: BP_SYST 140
[2019-03-12] MEDS: IPRATROPIUM/ALBUTEROL SULFATE 3 ML AMPUL.NEB (DUONEB) INH SCH ×3 (03:00→11:00)
[2019-03-12] MEDS: HYDROcodone/ACETAMIN 7.5-325 MG TAB PO PRN (05:32)
[2019-03-12 07:44] VITALS: BP_SYST 148
--- NOTE | 2019-03-12 07:50 | NUR ---
INITIAL NOTE RECEIVED PT IN BED, NO S/S OF DISTRESS OR SOB NOTED, PT HAS NO C/O PAIN AT THIS TIME, PT IN STABLE CONDITION, PT AAOX4, VERBAL. IV CATHETER PATENT, NO SIGNS OF INFECTION OR INFILTRATION NOTED, RUNNING IV FLUIDS ORDERED. BED AT LOWEST POSITION, CALL LIGHT WITHIN REACH, WILL CONTINUE TO MONITOR PT FOR ANY CHANGES, FALL AND SAFETY PRECAUTIONS IN PLACE. PT ON ROOM AIR, SATURATION OF 93%.
[2019-03-12] MEDS: OSELTAMIVIR PHOSPHATE 75 MG CAPSULE PO SCH (08:29)
[2019-03-12] MEDS: PANTOPRAZOLE SODIUM 40 MG TAB PO SCH (08:30)
[2019-03-12 08:45] LABS: BASOPHILS % (AUTO) 0.2 % (0.0-2.0); HEMATOCRIT 43.7 % (36-48); HEMOGLOBIN 14.3 g/dL (12.0-16.0); LYMPHOCYTES # (AUTO) 0.7 K/uL (1.0-5.5); LYMPHOCYTES % (AUTO) 6.6 % (20.5-51.5); MEAN CORPUSCULAR HEMOGLOBIN 30 pg (27-31); MEAN CORPUSCULAR HGB CONC 33 % (32-36); MEAN CORPUSCULAR VOLUME 92 fL (79.0-98.0); MONOCYTES # (AUTO) 0.3 K/uL (0.0-1.0); MONOCYTES % (AUTO) 3.2 % (1.7-9.3); NEUTROPHILS # (AUTO) 9.7 K/uL (1.8-7.7); PLATELET COUNT (AUTO) 230 K/uL (130-430); RED BLOOD CELL COUNT(AUTO) 4.77 MIL/uL (4.2-6.2); RED CELL DISTRIBUTION WIDTH 14.1 % (9.0-15.0); WHITE BLOOD COUNT (AUTO) 10.8 K/uL (4.8-10.8)
[2019-03-12] MEDS ORDERED: LISINOPRIL 10 MG TABLET (PRINIVIL) PO SCH (09:00)
[2019-03-12 09:04] LABS: CALCIUM 8.2 mg/dL (8.4-11.0); CREATININE 1.13 mg/dL (0.55-1.30); POTASSIUM 4.3 mmol/L (3.5-5.1)
--- NOTE | 2019-03-12 10:30 | NUR ---
ROUNDS PT IN BED, NO S/S OF DISTRESS OR SOB NOTED, PT HAS NO C/O PAIN AT THIS TIME, PT IN STABLE CONDITION, PT ON HER PHONE, WILL CONTINUE TO MONITOR PT FOR ANY CHANGES.
[2019-03-12] MEDS: NACL 0.9% 1,000 ML IV SCH (10:51)
[2019-03-12 12:00] VITALS: BP_SYST 120
--- NOTE | 2019-03-12 12:10 | NUR ---
ROUNDS PT IN BED, NO S/S OF DISTRESS OR SOB NOTED, PT HAS NO C/O PAIN AT THIS TIME, PT IN STABLE CONDITION, WILL CONTINUE TO MONITOR PT FOR ANY CHANGES. PT ON HER PHONE.
--- NOTE | 2019-03-12 14:50 | NUR ---
ROUNDS PT IN BED, NO S/S OF DISTRESS OR SOB NOTED, PT HAS NO C/O PAIN AT THIS TIME, PT IN STABLE CONDITION, WILL CONTINUE TO MONITOR PT FOR ANY CHANGES. PT WATCHING TV.
--- NOTE | 2019-03-12 15:10 | NUR ---
AMA: Patient does not wish to proceed with medical care recommended by Dr Schofield. Patient given information related to possible complications, up to and including , which could occur as a result of leaving hospital at this time. Patient verbalizes understanding of risks involved leaving against medical advice. Patient has signed AMA form. Prescriptions given to pt for HCTZ, tamiflu, levaquin and clonidine.
== END 2019-03-12 15:05 | disposition left against medical advice (07) | DRG 193 ==
LOC: SED 22:28 → STU 03-11 07:24
PROVIDERS: ADMIT Family Medicine; ATTEND Family Medicine
PROC: 02HV33Z Insertion of Infusion Device into Superior Vena Cava, Percutaneous Approach (ICD-10-PCS; principal; 2019-03-11)
PROC: B548ZZA Ultrasonography of Superior Vena Cava, Guidance (ICD-10-PCS; 2019-03-11)
DX: J10.1 Influenza due to other identified influenza virus with other respiratory manifestations (principal); J96.00 Acute respiratory failure, unspecified whether with hypoxia or hypercapnia; N17.0 Acute kidney failure with tubular necrosis; J44.1 Chronic obstructive pulmonary disease with (acute) exacerbation; E87.1 Hypo-osmolality and hyponatremia; F17.210 Nicotine dependence, cigarettes, uncomplicated; F15.10 Other stimulant abuse, uncomplicated; Z53.29 Procedure and treatment not carried out because of patient's decision for other reasons; I10 Essential (primary) hypertension; E86.0 Dehydration; G89.29 Other chronic pain; Z88.5 Allergy status to narcotic agent; Z88.1 Allergy status to other antibiotic agents; Z88.6 Allergy status to analgesic agent; Z88.8 Allergy status to other drugs, medicaments and biological substances; Z71.6 Tobacco abuse counseling; Z90.49 Acquired absence of other specified parts of digestive tract; Z80.8 Family history of malignant neoplasm of other organs or systems; Z84.89 Family history of other specified conditions
CPT/HCPCS: 36415; 71045; 80048; 80053; 80061; 80307; 81000-TC; 82150-TC; 83036; 83605; 83690-TC; 83735-TC; 83880; 84100-TC; 84439; 84443-TC; 84484; 85025; 85610-TC; 85730-TC; 86710; 87040-TC; 93005; 94640; 94760; 96360; 96372; 99285; C1751; G0378; G9035; J1030; J1956; J2270; J2930; J7030; J7512; J7620

== ENCOUNTER 2023-09-13 14:20 | Emergency (ER) | payer MEDICARE, MEDICAID ==
[~2023-09-13] VITALS: Ht 165.1 cm; Wt 63.5 kg
[2023-09-13 14:20] VITALS: BP_SYST 214; PULSE 101; RESP 18; TEMP 97.7; O2SAT 93
[~2023-09-13 14:20] MED LIST changes: -CEPH-568 PO; -HYDR-4100; -ONDA4TAB22 PO; -POTA10TA11 PO
[2023-09-13] MEDS: cloNIDine HCL 0.1 MG TABLET PO ONE (15:11)
[2023-09-13 15:39] LABS: BASOPHILS # (AUTO) 0.1 K/uL (0.0-0.2); BASOPHILS % (AUTO) 0.9 % (0.0-2.0); EOSINOPHILS # (AUTO) 0.2 K/uL (0.0-0.4); EOSINOPHILS % (AUTO) 2.4 % (0.0-4.0); HEMATOCRIT 42.6 % (36-48); HEMOGLOBIN 14.6 g/dL (12.0-16.0); LYMPHOCYTES # (AUTO) 1.7 K/uL (1.0-5.5); LYMPHOCYTES % (AUTO) 19.4 % (20.5-51.5); MEAN CORPUSCULAR HEMOGLOBIN 31 pg (27-31); MEAN CORPUSCULAR HGB CONC 34 % (32-36); MEAN CORPUSCULAR VOLUME 89 fL (79.0-98.0); MONOCYTES # (AUTO) 0.8 K/uL (0.0-1.0); MONOCYTES % (AUTO) 8.4 % (1.7-9.3); NEUTROPHILS # (AUTO) 6.2 K/uL (1.8-7.7); NEUTROPHILS % (AUTO) 68.9 % (40.0-70.0); PLATELET COUNT (AUTO) 305 K/uL (130-430); RED BLOOD CELL COUNT(AUTO) 4.78 MIL/uL (4.2-6.2)
[2023-09-13 16:12] LABS: ALANINE AMINOTRANSFERASE 14 U/L (12-78); ALBUMIN 2.9 g/dL (3.4-4.8); ANION GAP 8 (5-15); ASPARTATE AMINOTRANSFERASE 16 U/L (10-37); CALCIUM 8.6 mg/dL (8.4-11.0); CARBON DIOXIDE 29 mmol/L (23-29); CHLORIDE 104 mmol/L (98-107); CREATININE 2.08 mg/dL (0.55-1.30); GFR AFRICAN AMERICAN 31 mL/min (>90); GLUCOSE 97 mg/dL (74-106); POTASSIUM 3.7 mmol/L (3.5-5.1); SODIUM SERUM 141 mmol/L (136-145); TOTAL BILIRUBIN 0.4 mg/dL (0.0-1.0); TOTAL PROTEIN, SERUM 6.7 g/dL (6.4-8.3); UREA NITROGEN, BLOOD 36 mg/dL (8-21)
[2023-09-13 16:13] LABS: GFR NON AFRICAN-AMERICAN 26 mL/min (>90)
[2023-09-13 16:15] LABS: BILIRUBIN,DIRECT 0.1 mg/dL (0.0-0.3); CREATINE KINASE, TOTAL 123 U/L (26-192)
[2023-09-13] MEDS ORDERED: ATRMDI INH (16:15)
[2023-09-13] MEDS ORDERED: CLON0.1T PO (16:15)
[2023-09-13] MEDS ORDERED: ALBMDI INH (16:15)
[2023-09-13] MEDS ORDERED: CARV25TA55 PO (16:15)
[2023-09-13] MEDS ORDERED: HYDR-2923 PO (16:15)
[2023-09-13] MEDS ORDERED: CYCL10TA24 PO (16:23)
[2023-09-13] MEDS: IBUPROFEN 800 MG TABLET PO ONE (16:25)
[2023-09-13] MEDS: HYDROcodone/ACETAMIN 5-325 MG TAB (NORCO/ VICODIN) PO ONE (16:25)
[2023-09-13 18:51] VITALS: BP_SYST 206; PULSE 101; RESP 18; TEMP 97.7; O2SAT 93
== END 2023-09-13 18:52 | disposition home or self-care (01) ==
LOC: SED 14:20
DX: I16.0 Hypertensive urgency (principal); N28.9 Disorder of kidney and ureter, unspecified; R07.89 Other chest pain; I10 Essential (primary) hypertension; J44.9 Chronic obstructive pulmonary disease, unspecified; Z76.0 Encounter for issue of repeat prescription; Z95.4 Presence of other heart-valve replacement; Z88.5 Allergy status to narcotic agent; Z88.1 Allergy status to other antibiotic agents; Z88.6 Allergy status to analgesic agent; Z79.899 Other long term (current) drug therapy; Z79.2 Long term (current) use of antibiotics; Z59.00 Homelessness unspecified
CPT/HCPCS: 36415; 71045; 80048; 80076; 82550; 83880; 84484; 85025; 85610; 85730; 93005; 99285